=== PATIENT | female | born 2000 | race Caucasian/White ===

== ENCOUNTER → 2019-11-13 | Outpatient (CLI) | payer OTHER ==
[~2019-11-13] MED LIST: AMOXICILLIN500 MG PO; MORPHINE PO; NORCO 325 MG-51 TAB PO; NUTRILYTE 20 ML20 ML IV; ZOFRAN ODT4 MG SL; Zofran4 MG PO
== END | disposition home or self-care (01) ==
LOC: MRI 09:48
DX: R51 Headache (principal); Q85.01 Neurofibromatosis, type 1

== ENCOUNTER 2022-05-08 14:44 | Emergency (ER) | payer OTHER ==
[~2022-05-08] VITALS: Ht 162.5 cm; Wt 91.2 kg
[2022-05-08 14:50] VITALS: BP 127/70
[2022-05-08 16:50] LABS: BILIRUBIN Negative (Negative); BLOOD Negative (Negative); CLARITY Cloudy (Clear); COLOR Yellow (Yellow); GLUCOSE Negative (Negative); KETONE Negative (Negative); LEUKO ESTERASE 2+ (Negative); NITRITE Negative (Negative); PH 6.5 (4.5-8.0)
[2022-05-08 17:00] LABS: BACTERIA 3+
[2022-05-08] MEDS ORDERED: SEPTDS PO (17:35)
== END 2022-05-08 17:47 | disposition home or self-care (01) ==
LOC: ED 14:44
PROVIDERS: Physician Assistant
DX: N39.0 Urinary tract infection, site not specified (principal); Z88.1 Allergy status to other antibiotic agents

== ENCOUNTER 2022-05-22 14:04 | Emergency (ER) | payer OTHER ==
[~2022-05-22] VITALS: Ht 162.5 cm; Wt 91.2 kg
[~2022-05-22 14:04] MED LIST changes: +SEPTDS PO
[2022-05-22 14:30] VITALS: BP 124/65
[2022-05-22 16:15] LABS: BASO % 0.4 % (0.0-1.0); EOS # 0.2 10*3/uL (0.0-0.4); EOS % 3.8 % (1.0-4.0); HEMATOCRIT 38.6 % (37.0-47.0); LYMPH # 0.9 10*3/uL (1.3-4.4); LYMPH % 17.9 % (27.0-41.0); MEAN CELL VOLUME 88.5 fl (81.0-99.0); MEAN CORPUSCULAR HGB 29.4 pg (27.0-31.0); MEAN CORPUSCULAR HGB CONC 33.2 g/dl (33.0-37.0); MEAN PLATELET VOLUME 9.5 fl (9.6-12.3); MONO # 0.6 10*3/uL (0.1-1.0); MONO % 12.2 % (3.0-9.0); NEUT # 3.1 10*3/uL (2.3-7.9); NEUT % 65.5 % (47.0-73.0); PLATELET COUNT AUTOMATED 296 10*3/uL (130-400); RED BLOOD COUNT 4.36 10*6/uL (4.10-5.10); RED CELL DISTRI WIDTH 12.7 % (0-14.5); WHITE BLOOD COUNT 4.8 10*3/uL (4.8-10.8)
[2022-05-22 16:38] LABS: ALKALINE PHOSPHATASE 64 U/L (45-117); BUN 8 mg/dl (7-24); CHLORIDE 108 mmol/L (98-107); CREATININE 0.76 mg/dL (0.55-1.02); LIPASE 60 U/L (73-393); POTASSIUM 3.5 mmol/L (3.5-5.1); SGOT/AST 12 IU/L (3-35); SGPT/ALT 27 U/L (12-78); SODIUM 140 mmol/L (136-145); TOTAL PROTEIN 6.6 gm/dL (6.4-8.2)
[2022-05-22 16:40] LABS: BETA-HCG, QUANT < 1.0 mIU/mL (1-3)
[2022-05-22 19:04] LABS: BILIRUBIN Negative (Negative); BLOOD 3+ (Negative); CLARITY Cloudy (Clear); COLOR Yellow (Yellow); GLUCOSE Negative (Negative); KETONE Trace (Negative); LEUKO ESTERASE Negative (Negative); NITRITE Negative (Negative); PH 7.5 (4.5-8.0)
[2022-05-22 19:25] LABS: BACTERIA 2+; EPITHELIAL CELLS 16-20; MUCOUS 2+
[2022-05-22] MEDS ORDERED: Percocet 325 MG1 TAB PO (20:03)
== END 2022-05-22 20:13 | disposition home or self-care (01) ==
LOC: ED 14:04
PROVIDERS: Emergency Medicine
DX: R19.00 Intra-abdominal and pelvic swelling, mass and lump, unspecified site (principal); Z88.1 Allergy status to other antibiotic agents

== ENCOUNTER 2023-04-06 07:02 | Emergency (ER) | payer OTHER ==
[~2023-04-06] VITALS: Ht 162.5 cm; Wt 91.2 kg
[~2023-04-06 07:02] MED LIST changes: +Percocet 325 MG1 TAB PO
[2023-04-06 07:18] VITALS: BP 121/76
[2023-04-06] MEDS ORDERED: IBU800 MG PO (08:17)
== END 2023-04-06 08:37 | disposition home or self-care (01) ==
LOC: ED 07:02
DX: S83.131A Medial subluxation of proximal end of tibia, right knee, initial encounter (principal); Z88.8 Allergy status to other drugs, medicaments and biological substances; X58.XXXA Exposure to other specified factors, initial encounter; Y93.89 Activity, other specified; Y92.89 Other specified places as the place of occurrence of the external cause; Y99.8 Other external cause status

== ENCOUNTER 2023-10-05 10:38 | Emergency (ER) | payer OTHER ==
[~2023-10-05] VITALS: Ht 165.1 cm; Wt 80.3 kg
[~2023-10-05 10:38] MED LIST changes: +IBU800 MG PO
[2023-10-05 10:48] VITALS: BP 133/67
[2023-10-05] MEDS ORDERED: CYCLOBENZAPRINE5 M3 PO (11:00)
[2023-10-05] MEDS ORDERED: MELOXICAM15 MG PO (11:00)
== END 2023-10-05 11:30 | disposition home or self-care (01) ==
LOC: ED 10:38
DX: S86.891A Other injury of other muscle(s) and tendon(s) at lower leg level, right leg, initial encounter (principal); M54.50 Low back pain, unspecified; M62.830 Muscle spasm of back; Z88.1 Allergy status to other antibiotic agents; X58.XXXA Exposure to other specified factors, initial encounter; Y93.89 Activity, other specified; Y92.89 Other specified places as the place of occurrence of the external cause; Y99.8 Other external cause status

== ENCOUNTER 2025-01-29 08:51 | Emergency (ER) | payer OTHER ==
[~2025-01-29] VITALS: Ht 165.1 cm; Wt 81.6 kg
[~2025-01-29 08:51] MED LIST changes: +CYCLOBENZAPRINE5 M3 PO; +MELOXICAM15 MG PO
[2025-01-29 08:57] VITALS: BP 123/77
[2025-01-29] MEDS ORDERED: MORPHINE Sulfate 2 MG/ML SYR IV ONE (09:10)
[2025-01-29] MEDS ORDERED: Ondansetron Hydrochloride 4 MG/2 ML VIAL IV ONE (09:10)
[2025-01-29] MEDS ORDERED: SODIUM CHLORIDE 0.9% 1,000 ML IV ONE (09:10)
[2025-01-29 09:19] LABS: BASO % 0.6 % (0.0-1.0); EOS # 0.2 10*3/uL (0.0-0.4); EOS % 2.4 % (1.0-4.0); HEMATOCRIT 43.1 % (37.0-47.0); MEAN CELL VOLUME 88.7 fl (81.0-99.0); MEAN CORPUSCULAR HGB 28.8 pg (27.0-31.0); MEAN CORPUSCULAR HGB CONC 32.5 g/dl (33.0-37.0); MEAN PLATELET VOLUME 9.4 fl (9.6-12.3); MONO # 0.8 10*3/uL (0.1-1.0); MONO % 12.1 % (3.0-9.0); NEUT # 4.7 10*3/uL (2.3-7.9); NEUT % 70.2 % (47.0-73.0); PLATELET COUNT AUTOMATED 351 10*3/uL (130-400); RED BLOOD COUNT 4.86 10*6/uL (4.10-5.10); RED CELL DISTRI WIDTH 12.5 % (0-14.5); WHITE BLOOD COUNT 6.6 10*3/uL (4.8-10.8)
[2025-01-29 09:44] LABS: BUN 14 mg/dl (9-23); CHLORIDE 106 mmol/L (98-107); POTASSIUM 4.3 mmol/L (3.4-5.1)
== END 2025-01-29 10:26 | disposition home or self-care (01) ==
LOC: ED 08:51
PROVIDERS: Emergency Medicine
DX: G62.9 Polyneuropathy, unspecified (principal); R20.0 Anesthesia of skin; Z88.1 Allergy status to other antibiotic agents